=== PATIENT | male | born 1950 | race Caucasian/White ===

== ENCOUNTER 2022-01-27 12:36 | Inpatient (IN) ==
[2022-01-27] MEDS ORDERED: dilTIAZem HCl 5 MG/ML 5 ML VIAL IV STA (13:01)
[2022-01-27] MEDS ORDERED: STAT IV Infusion **Titration per Protocol STA (13:01)
--- NOTE | 2022-01-27 13:06 | Emergency Department Note ---
History of Present Illness General Chief complaint: Shortness of Breath/Dyspnea Stated complaint: DR SUSANNA SYD OVER Time Seen by Provider: 01/27/22 12:49 Source: patient Mode of arrival: ambulatory Limitations: no limitations History of Present Illness Provider complaint: Shortness of breath This is a 71-year-old male presents emergency department due to concern for shortness of breath. Patient states symptoms have been ongoing over several weeks. He states they are not constant. He states sometimes they are a ssociated with exertion although not consistently. Patient did not denies any prior similar episodes. Patient denies any history of asthma or COPD, he states he is a former smoker. Patient denies any history of heart problems although states he has previously had a cardiac evaluation several years ago. Patient states he takes losartan for high blood pressure, and started atorvastatin at the end of October. Patient is concerned his symptoms may be from the initiation of atorvastatin. Patient denies any other recent travel or illness. Denies fevers or chills. He denies any sense of chest pain or palpitations. Home Medications Medication Instructions Recorded Confirmed Type alprazolam 0.5 mg tablet 0.5 mg PO HS PRN Sleep 01/27/22 01/27/22 History atorvastatin 20 mg tablet 20 mg PO QAM 01/27/22 01/27/22 History losartan 50 mg tablet 50 mg PO QAM 01/27/22 01/27/22 History multivitamin (Multiple Vitamins 1 tab PO QAM 01/27/22 01/27/22 History tablet) Allergies Allergy/AdvReac Type Severity Reaction Status Date / Time lisinopril Allergy Unknown Cough Verified 01/27/22 15:44 Past Med/Surg History Medical History Hyperlipidemia Hypertension Social History Smoking Status: Former smoker Hx Alcohol Use: No Preferred Language: Upper Sorbian Communication Ability: Effective Dentist Required: No Beliefs That Will Affect Care: None Current Living Situation: Alone Feels Safe at Home: Yes Safety Concerns: Feels Safe At This Time Assistive Devices: None Review of Systems A total of 10 systems reviewed and were otherwise negative All systems reviewed & are unremarkable except as noted in HPI & below Physical Exam Vital Signs Vital Signs - 24 hr 01/27/22 12:42 01/27/22 12:56 01/27/22 12:57 Temperature 36.5 C Temperature Source Temporal Artery Scan Pulse Rate 137 H Pulse Rate [Apical] 134 H Pulse Rhythm [Apical] Regular Pulse Strength [Apical] Normal Respiratory Rate 18 18 Respiratory Effort / Characteristics Non-Labored Spontaneous Non-Labored Respiratory Depth Normal Normal Respiratory Pattern Regular Blood Pressure 122/77 Blood Pressure [Right Arm] 140/117 H Blood Pressure Mean 92 Blood Pressure Mean [Right Arm] 124 Blood Pressure Position Sitting Pulse Oximetry 96 96 97 Oxygen Delivery Method Room Air Room Air Room Air Oxygen Flow Rate 0 Sepsis Recent Fever Within 48 Hours No Sepsis New/Unexplained Change in Mental Status N/A Sepsis Action Taken by Nursing No Action Required 01/27/22 14:00 Temperature Temperature Source Pulse Rate Pulse Rate [Apical] 126 H Pulse Rhythm [Apical] Regular Pulse Strength [Apical] Normal Respiratory Rate 18 Respiratory Effort / Characteristics Non-Labored Respiratory Depth Normal Respiratory Pattern Blood Pressure Blood Pressure [Right Arm] 122/97 Blood Pressure Mean Blood Pressure Mean [Right Arm] 105 Blood Pressure Position Pulse Oximetry 95 Oxygen Delivery Method Room Air Oxygen Flow Rate Sepsis Recent Fever Within 48 Hours Sepsis New/Unexplained Change in Mental Status Sepsis Action Taken by Nursing GENERAL: alert, well appearing, well nourished, no distress, non-toxic EYE EXAM: normal conjunctiva, PERRL and EOM's grossly intact OROPHARYNX: no exudate, no erythema, lips, buccal mucosa, and tongue normal and mucous membranes are moist NECK: supple, no nuchal rigidity, no adenopathy, non-tender LUNGS: Clear to auscultation. Normal chest wall mechanics, no w/r/r HEART: no murmurs, S1 normal and S2 normal, patient found to be in A. fib in the 140s on telemetry ABDOMEN: abdomen soft, non-tender, normo-active bowel sounds, no masses, no rebound or guarding. BACK: Back is symmetrical on inspection and there is no deformity, no midline tenderness, no CVA tenderness. SKIN: no rashes and no bruising UPPER EXTREMITIES: upper extremities are grossly normal. FROM, nml pulses b/l. LOWER EXTREMITIES: Trace bilateral pitting edema. FROM, nml pulses b/l. NEURO EXAM: Normal sensorium, cranial nerves II-XII grossly intact, normal speech, no gross weakness of arms, no gross weakness of legs. Gross sensation intact. Course Course 1426: Patient improved, heart rate still variable but sitting much lower. Labs reassuring. [id number] 2 score calculated at 2 points. Administered Medications Diltiazem HCl 125 mg/ Dextrose 125 mls @ 15 mls/hr IV .[id number] DUTSY; Protocol Stop: 02/26/22 13:14 Last Titration: 01/27/22 17:38 Dose: 15 mg/hr, 15 mls/hr Documented By: MARCELLO Co-signed By: FRANSISCO Titration: 01/27/22 14:06 Dose: 10 mg/hr, 10 mls/hr Documented By: MOHAMUD Co-signed By: CHUY Admin: 01/27/22 13:16 Dose: 5 mg/hr, 5 mls/hr Documented By: MOHAMUD Co-signed By: CHUY Sodium Chloride (Nss 1000ml) 1,000 mls @ 125 mls/hr IV .Q8H DUSTY Stop: 02/26/22 14:44 Last Admin: 01/27/22 15:31 Dose: 125 mls/hr Documented By: MOHAMUD Heparin Sodium/Dextrose (Heparin Sodium/Dextrose) 25,000 units in 500 mls @ 30 mls/hr IV .[id number] [facility]; Protocol Stop: 02/26/22 15:59 Last Admin: 01/27/22 18:16 Dose: 1,500 units/hr, 30 mls/hr Documented By: MARCELLO Co-signed By: GIO Doxycycline Hyclate 100 mg/ (Dextrose) 110 mls @ 50 mls/hr IV Q12H [facility] Stop: 02/06/22 17:44 Last Admin: 01/27/22 18:30 Dose: 50 mls/hr Documented By: MARCELLO Discontinued Medications Diltiazem HCl (Diltiazem Hcl 5 Mg/Ml 5 Ml Vial) 20 mg IV NOW [facility] Stop: 01/27/22 13:02 Last Admin: 01/27/22 13:15 Dose: 20 mg Documented By: MOHAMUD Co-signed By: CHUY Diltiazem HCl (Diltiazem Hcl 5 Mg/Ml 5 Ml Vial) 20 mg IV Q30M [facility] Stop: 01/28/22 00:00 Last Admin: 01/27/22 18:08 Dose: Not Given Documented By: Admin: 01/27/22 18:00 Dose: Not Given Documented By: MARCELLO Magnesium Sulfate/Dextrose (Magnesium Sulfate / D5w) 1 gm in 100 mls @ 100 mls/hr IV NOW STA Stop: 01/27/22 15:08 Last Infusion: 01/27/22 15:28 Dose: 0 mls/hr Documented By: Admin: 01/27/22 14:25 Dose: 100 mls/hr Documented By: MOHAMUD Miscellaneous (Stat Iv Infusion Titration Per Protocol) 1 each N/A NOW STA Stop: 01/27/22 13:02 Last Admin: 01/27/22 13: Dose: 1 each Documented By: MOHAMUD Critical Care Time Critical Care Time: Yes Total Critical Care Time: 39 Critical care of 39 min performed to assess and manage high likelihood of life- threatening dyspnea and dysrhythmia involving labs and imaging performed with assessment to evaluate dyspnea and dysrhythmia diagnosis with frequent reassessment. This time includes bedside time, treatment discussions with patient/family/consultants, documentation time and excludes procedure time. Medical Decision Making Differential Diagnosis Differential diagnoses includes but is not limited to pneumonia, bronchitis, C OPD/Asthma exacerbation, pneumothorax, pulmonary embolism, congestive heart failure, acute coronary syndrome Medical Records Attestation: I reviewed the patient's medical records. Home Medications Current Medication List: was personally reviewed by me Laboratory Data Attestation: I reviewed the patient's lab results. Result diagrams: 01/27/22 12:57 01/27/22 12:57 Lab Results 01/27/22 01/27/22 01/27/22 Range/Units 12:57 12:57 12:57 WBC 5.76 (4.8-10.8) K/ul RBC 4.68 (4.63-6.08) M/uL Hgb 14.9 (14.0-18.0) g/dl Hct 44.9 (40.1-51.0) % MCV 95.9 (80.0-100.0) fL MCH 31.8 (25.0-34.0) pg MCHC 33.2 (32.0-36.0) g/dL RDW Std Deviation 45.2 (36.4-46.3) fL RDW Coeff of Vicki 12.6 (11.5-14.5) % Plt Count 338 (130-400) K/uL MPV 9.4 (9.4-12.4) fL Immature Gran % (Auto) 0.2 % Neut % (Auto) 61.0 % Lymph % (Auto) 30.4 % Howell % (Auto) 6.6 % Eos % (Auto) 0.9 % Baso % (Auto) 0.9 % Neut # (Auto) 3.52 (1.4-6.5) K/uL Lymph # (Auto) 1.75 (1.2-3.4) K/uL Howell # (Auto) 0.38 (0.24-0.82) K/uL Eos # (Auto) 0.05 (0-0.50) K/uL Baso # (Auto) 0.05 (0-0.2) K/uL Immature Gran # (Auto) 0.01 (0.00-0.02) K/uL PT 11.0 (9.0-12.0) Seconds INR 1.0 (0.9-1.1) Sodium (136-145) mmol/L Potassium (3.5-5.1) mmol/L Chloride (98-107) mmol/L Carbon Dioxide (21-32) mmol/L Anion Gap (3-11) BUN (6-23) mg/dl Creatinine (0.6-1.4) mg/dl Est Cr Clr Drug Dosing ml/min Est GFR ( Amer) ml/min Est GFR (Non-Af Amer) ml/min BUN/Creatinine Ratio (10-20) Glucose (70-99(Fasting)) mg/dl Calcium (8.5-10.1) mg/dl Magnesium (1.7-2.4) mg/dl Total Bilirubin (0.2-1.0) mg/dl AST (13-39) U/L ALT (7-52) U/L Alkaline Phosphatase (34-104) U/L Troponin I High Sens (0-20) pg/ml B-Natriuretic Peptide 305 H (0-100) pg/ml Total Protein (6.0-8.3) gm/dl Albumin (3.4-5.0) gm/dl Globulin (2.5-4.0) gm/dl Albumin/Globulin Ratio (0.9-2) Lipase (11-82) U/L TSH (0.300-4.500) uIu/ml Lyme Disease IgG Ab (Negative) Lyme Disease IgM Ab (Negative) SARS-CoV-2, RNA, NAAT (NEGATIVE) 01/27/22 01/27/22 01/27/22 Range/Units 12:57 12:57 12:57 WBC (4.8-10.8) K/ul RBC (4.63-6.08) M/uL Hgb (14.0-18.0) g/dl Hct (40.1-51.0) % MCV (80.0-100.0) fL MCH (25.0-34.0) pg MCHC (32.0-36.0) g/dL RDW Std Deviation (36.4-46.3) fL RDW Coeff of Vicki (11.5-14.5) % Plt Count (130-400) K/uL MPV (9.4-12.4) fL Immature Gran % (Auto) % Neut % (Auto) % Lymph % (Auto) % Howell % (Auto) % Eos % (Auto) % Baso % (Auto) % Neut # (Auto) (1.4-6.5) K/uL Lymph # (Auto) (1.2-3.4) K/uL Howell # (Auto) (0.24-0.82) K/uL Eos # (Auto) (0-0.50) K/uL Baso # (Auto) (0-0.2) K/uL Immature Gran # (Auto) (0.00-0.02) K/uL PT (9.0-12.0) Seconds INR (0.9-1.1) Sodium 142 (136-145) mmol/L Potassium 4.2 (3.5-5.1) mmol/L Chloride 105 (98-107) mmol/L Carbon Dioxide 27 (21-32) mmol/L Anion Gap 10 (3-11) BUN 30 H (6-23) mg/dl Creatinine 1.09 (0.6-1.4) mg/dl Est Cr Clr Drug Dosing 73.3 ml/min Est GFR ( Amer) 78.7 ml/min Est GFR (Non-Af Amer) 67.9 ml/min BUN/Creatinine Ratio 27.5 H (10-20) Glucose 112 H (70-99(Fasting)) mg/dl Calcium 9.4 (8.5-10.1) mg/dl Magnesium 1.8 (1.7-2.4) mg/dl Total Bilirubin 0.6 (0.2-1.0) mg/dl AST 72 H (13-39) U/L ALT 88 H (7-52) U/L Alkaline Phosphatase 60 (34-104) U/L Troponin I High Sens 9.6 (0-20) pg/ml B-Natriuretic Peptide (0-100) pg/ml Total Protein 7.2 (6.0-8.3) gm/dl Albumin 4.1 (3.4-5.0) gm/dl Globulin 3.1 (2.5-4.0) gm/dl Albumin/Globulin Ratio 1.3 (0.9-2) Lipase 26 (11-82) U/L TSH 1.473 (0.300-4.500) uIu/ml Lyme Disease IgG Ab Positive A (Negative) Lyme Disease IgM Ab Negative (Negative) SARS-CoV-2, RNA, NAAT (NEGATIVE) 01/27/22 Range/Units 13:17 WBC (4.8-10.8) K/ul RBC (4.63-6.08) M/uL Hgb (14.0-18.0) g/dl Hct (40.1-51.0) % MCV (80.0-100.0) fL MCH (25.0-34.0) pg MCHC (32.0-36.0) g/dL RDW Std Deviation (36.4-46.3) fL RDW Coeff of Vicki (11.5-14.5) % Plt Count (130-400) K/uL MPV (9.4-12.4) fL Immature Gran % (Auto) % Neut % (Auto) % Lymph % (Auto) % Howell % (Auto) % Eos % (Auto) % Baso % (Auto) % Neut # (Auto) (1.4-6.5) K/uL Lymph # (Auto) (1.2-3.4) K/uL Howell # (Auto) (0.24-0.82) K/uL Eos # (Auto) (0-0.50) K/uL Baso # (Auto) (0-0.2) K/uL Immature Gran # (Auto) (0.00-0.02) K/uL PT (9.0-12.0) Seconds INR (0.9-1.1) Sodium (136-145) mmol/L Potassium (3.5-5.1) mmol/L Chloride (98-107) mmol/L Carbon Dioxide (21-32) mmol/L Anion Gap (3-11) BUN (6-23) mg/dl Creatinine (0.6-1.4) mg/dl Est Cr Clr Drug Dosing ml/min Est GFR ( Amer) ml/min Est GFR (Non-Af Amer) ml/min BUN/Creatinine Ratio (10-20) Glucose (70-99(Fasting)) mg/dl Calcium (8.5-10.1) mg/dl Magnesium (1.7-2.4) mg/dl Total Bilirubin (0.2-1.0) mg/dl AST (13-39) U/L ALT (7-52) U/L Alkaline Phosphatase (34-104) U/L Troponin I High Sens (0-20) pg/ml B-Natriuretic Peptide (0-100) pg/ml Total Protein (6.0-8.3) gm/dl Albumin (3.4-5.0) gm/dl Globulin (2.5-4.0) gm/dl Albumin/Globulin Ratio (0.9-2) Lipase (11-82) U/L TSH (0.300-4.500) uIu/ml Lyme Disease IgG Ab (Negative) Lyme Disease IgM Ab (Negative) SARS-CoV-2, RNA, NAAT NEGATIVE (NEGATIVE) Imaging Data Radiologist's Impression: Chest X-Ray 01/27/22 13:01 SINGLE VIEW CHEST CLINICAL HISTORY: Dyspnea. FINDINGS: An AP, portable, upright chest radiograph is obtained. No prior studies are available for comparison at the time of dictation. The heart is enlarged. The pulmonary vasculature is noncongested. Nonspecific interstitial thickening is likely chronic. There are trace pleural effusions with dependent consolidation. No pneumothorax is seen. The skeletal structures are osteopenic. The bony thorax is grossly intact. IMPRESSION: 1. Cardiomegaly without radiographic evidence of congestive failure. 2. Trace pleural effusions with dependent consolidation. This likely represents atelectasis and clinical correlation will be required. ACT 112: Negative or not required by law. Electronically signed by: Uche Lam M.D. 01/27/2022 1:39 PM ECG Data Attestation: I personally reviewed and interpreted this ECG as follows: Indication: + SOB/dyspnea Rate (beats per minute): 143 Rhythm: + atrial fibrillation ECG Intervals/blocks: + Normal QRS and + Normal QT ECG [place]: + Left axis deviation ECG ST segments: + Nonspecific ST abnormalities MDM Narrative An order was placed for continuous cardiac monitoring. The monitor shows a rate of _113__ with _atrial fibrillation_ rhythm. This is a 71-year-old male who presents with nearly a months worth of intermittent shortness of breath. No prior cardiac history. No other underlying pulmonary issues per his report. Patient afebrile and hemodynamically stable. He was found to be in rapid A. fib although he had no symptoms at bedside during my exam. Labs are drawn and sent, chest x-ray and EKG performed. Patient started on Cardizem bolus and drip with improvement in the overall range and rate of his atrial fibrillation. Patient was given additional magnesium. Patient with reassuring labs although ultimately noted to have an IgG positive Lyme test. Patient denies any prior known diagnosis of Lyme although does spend a lot of time outdoors in the summer and has had prior tick bites. It is unclear if this could be contributing to his symptoms given his advanced age and use of alcohol and coffee frequently. Patient started on gentle IV fluid rehydration as a precaution. I did review prior cardiac testing performed several years ago by Dr. Ponce. Case discussed with hospitalist for additional evaluation and management. Anticoagulation deferred to them. [id number] 2 score of 2. Impression & Plan Dyspnea, Atrial fibrillation with rapid ventricular response Discharge Plan Visit Data Chief Complaint: Shortness of Breath/Dyspnea Stated Complaint: SOB, DR REF OVER ED Provider: Akanksha Irwin Discharge Problem: Dyspnea, Atrial fibrillation with rapid ventricular response Patient Disposition: Admitted As Inpatient Discharge Instructions Interventions: ED Discharge Assessment Last Done: 01/27/22 16:32
[2022-01-27] MEDS: dilTIAZem HCL 125 MG in DEXTROSE 5% 100 ML IV SCH ×2 (13:16→22:14)
[2022-01-27 13:18] LABS: Basophils # (auto) 0.05 K/uL (0-0.2); Basophils % (auto) 0.9 %; Eosinophils # (auto) 0.05 K/uL (0-0.50); Eosinophils % (auto) 0.9 %; Hematocrit (blood only) 44.9 % (40.1-51.0); Hemoglobin 14.9 g/dl (14.0-18.0); Immature Granulocytes # (auto) 0.01 K/uL (0.00-0.02); Immature Granulocytes % (auto) 0.2 %; Lymphocytes # (auto) 1.75 K/uL (1.2-3.4); Lymphocytes % (auto) 30.4 %; Mean Corpuscular Hemoglobin 31.8 pg (25.0-34.0); Mean Corpuscular Hgb Conc 33.2 g/dL (32.0-36.0); Mean Corpuscular Volume 95.9 fL (80.0-100.0); Mean Platelet Volume 9.4 fL (9.4-12.4); Monocytes # (auto) 0.38 K/uL (0.24-0.82); Monocytes % (auto) 6.6 %; Neutrophils # (auto) 3.52 K/uL (1.4-6.5); Platelet Count 338 K/uL (130-400); RDW Coefficient of Variation 12.6 % (11.5-14.5); RDW Standard Deviation 45.2 fL (36.4-46.3); Red Blood Count 4.68 M/uL (4.63-6.08); White Blood Count 5.76 K/ul (4.8-10.8)
--- NOTE | 2022-01-27 13:40 | XRay Report ---
SINGLE VIEW CHEST CLINICAL HISTORY: Dyspnea. FINDINGS: An AP, portable, upright chest radiograph is obtained. No prior studies are available for c omparison at the time of dictation. The heart is enlarged. The pulmonary vasculature is noncongested. Nonspecific interstitial thickening is likely chronic. There are trace pleural effusions with depend ent consolidation. No pneumothorax is seen. The skeletal structures are osteopenic. The bony thorax i s grossly intact. IMPRESSION: 1. Cardiomegaly without radiographic evidence of congestive failure. 2. Trace pleural effusions with dependent consolidation. This likely represents atelectasis and clini albert correlation will be required. ACT 112: Negative or not required by law. Electronically signed by: Uche Lam M.D. 01/27/2022 1:39 PM
[2022-01-27 13:51] LABS: Troponin I High Sensitivity 9.6 pg/ml (0-20)
[2022-01-27 13:53] LABS: Albumin Globulin Ratio 1.3 (0.9-2); Albumin Level 4.1 gm/dl (3.4-5.0); BUN Creatinine Ratio 27.5 (10-20); Bilirubin,Total 0.6 mg/dl (0.2-1.0); Calcium 9.4 mg/dl (8.5-10.1); Creatinine Clr Calc Pharmacy 73.3 ml/min; Est GFR (African American) 78.7 ml/min; Est GFR (Non-African American) 67.9 ml/min; Globulin 3.1 gm/dl (2.5-4.0); Magnesium 1.8 mg/dl (1.7-2.4); Potassium 4.2 mmol/L (3.5-5.1); Total Protein 7.2 gm/dl (6.0-8.3)
[2022-01-27] MEDS ORDERED: MAGNESIUM SULFATE / D5W 1 GM/100 ML BAG IV STA (14:09)
[2022-01-27 14:55] LABS: Lyme Ab IgM w/WB Rflx Negative (Negative)
[2022-01-27 14:56] LABS: Lyme Ab IgG w/WB Rflx Positive (Negative)
[2022-01-27] MEDS: SODIUM CHLORIDE 0.9% 1000ML 1,000 ML IV SCH ×2 (15:31→23:35)
[2022-01-27] MEDS ORDERED: MAGNESIUM HYDROXIDE SUSP 30 ML UDC PO PRN (15:41)
[2022-01-27] MEDS ORDERED: NITROGLYCERIN SL 0.4 MG/TAB TAB SL PRN (15:41)
[2022-01-27] MEDS ORDERED: ACETAMINOPHEN 325 MG TAB PO PRN (15:41)
[2022-01-27] MEDS ORDERED: POLYETHYLENE (MIRALAX) 17 GM PACK PO PRN (15:41)
[2022-01-27] MEDS ORDERED: ALUMINUM/MAGNESIUM SUSP 30 ML UDC PO PRN (15:41)
[2022-01-27] MEDS ORDERED: Heparin IV Adult Wt-Based Standard *NO* Bolus Protocol IV STA (15:48)
--- NOTE | 2022-01-27 16:04 | History & Physical Report ---
Date of Service January 27, 2022 Assessment & Plan (1) Atrial fibrillation with rapid ventricular response: Plan #. A. fib with RVR: Patient was sent from PCP office with A. fib with RVR with heart rate in 130s Patient was having shortness of breath especially with exertion and also erratically since couple of weeks to a month prior to arrival EKG at admission with A. fib with RVR with heart rate in 143. Admitting electrolytes with magnesium of 1.8, given a gram of magnesium in the ED. Admitting troponin negative. Trend troponin, echo, cardiology consult, heparin drip, patient started on diltiazem drip in the ED which we will continue. BNP, TSH, telemetry monitoring. Orthostatic vitals. Monitor and replete electrolytes. Maintain potassium greater than 4 and magnesium greater than 2.0 Pt advised to minimize alcohol use to zero, and minimize caffeine use. #. Lyme positive: Patient reports history of tick bite in the past where he had pulled ticks from his body, last one couple of years ago per him. Lyme IgG positive in the ED, confirmatory test pending. We will put him on doxycycline until results finalized. #. Alcohol use: reports drinking 1-2 beers a day, reports last drink a week ago, monitor for withdrawal, though unlikely if last drink was a week ago. #. Other chronic medical conditions: HTN, HLD --> resume home meds as able. #. DVT prophylaxis: On heparin drip #. Full code, if situation arises patient would like his daughter Yessica make decisions. History of Present Illness Chief Complaint: Shortness of breath New A. fib with RVR Primary Care Provider: Rolan Estrada MD 71-year-old male with PMH of HLD, HTN, varicose veins of lower extremities with complication, ectatic aorta, anxiety, elevated PSA was sent from the PCP office due to A. fib RVR with heart rate in 130s. Per patient, he has been having shortness of breath mostly with exertion but erratically as well since couple of weeks to a month prior to arrival, no associated chest pain or feeling of heart racing, denies headache/recent flulike symptoms/belly pain/acute changes in his bowel or bladder habit. Patient complains of dizziness on and off especially when getting off of the chair which gets better within couple of seconds. Patient reports drinking 4-5 coffee a day, last drink of coffee 1 week ago per patient. Patient drinks more beer during the summer, 4-5 beer over the weekend on top of 1-2 beer on a regular basis. Patient camps every summer and remembers pulling out ticks couple of times from his body, last one couple of years ago. Today patient went to PCP office for shortness of breath where EKG was done and was found in A. fib with RVR with heart rate of 130 and sent to the ED. Patient denies any headache or belly pain or acute swelling in his lower extremities. Patient reports he has chronic RLE swelling with varicose veins. Medications were reviewed with the patient. Patient's daughter Taylre Gautam and Marline Seo were present at the bedside. No personal history of blood clot or family history of blood clot. Patient's mother had colon cancer and has pacemaker. Patient's father during bypass surgery per patient. Patient worked as warehouse administrative assistant, currently retired. Patient quit smoking 15 to 18 years ago, reports smoking for around 45 years with an average of 1 packs a day. Patient has been drinking alcohol for 40 to 45 years, 1-2 beers a day, more during the . Patient denies any history of use of recreational drugs. Full code. Would like his daughters Tayler and Marline make decisions if situation arises. Allergies Allergy/AdvReac Type Severity Reaction Status Date / Time lisinopril Allergy Unknown Cough Verified 01/27/22 15:44 Home Medications Medication Instructions Recorded Confirmed Type alprazolam 0.5 mg tablet 0.5 mg PO HS PRN Sleep 01/27/22 01/27/22 History atorvastatin 20 mg tablet 20 mg PO QAM 01/27/22 01/27/22 History losartan 50 mg tablet 50 mg PO QAM 01/27/22 01/27/22 History multivitamin (Multiple Vitamins 1 tab PO QAM 01/27/22 01/27/22 History tablet) Past Med/Surg History Medical History Hyperlipidemia Hypertension Social History Smoking Status: Former smoker Feels Safe at Home: Yes Review of Systems Review of Systems: Negative otherwise mentioned in HPI. Physical Exam Physical Exam: GENERAL: Alert and oriented x3. NAD, on RA. HEENT: No pallor, no icterus. Pupils equal, round and reactive to light. Oral mucosa moist. NECK: No JVD, no neck masses. HEART: S1 and S2 heard. Irregular in 120s. No murmur, no gallop. RESPIRATORY SYSTEM: Normal AP diameter. No accessory muscle use. No wheezing, no crackles. ABDOMEN: Soft, bowel sounds present, nontender, no distention. CENTRAL NERVOUS SYSTEM: No facial droop. Speech is clear. Obeys simple commands. Moves extremities. EXTREMITIES: RLE varicosity w/ 1-2 + pitting edema, LLE w/ trace edema, no erythema noted. Results & Data Results & Data ([facility] [place]) Vital Signs (Past 12 Hours) Vital Signs Temp Pulse Pulse Resp BP BP Pulse Ox 01/27/22 14:00 126 H 18 122/97 95 01/27/22 12:57 134 H 18 140/117 H 97 01/27/22 12:56 96 01/27/22 12:42 36.5 C 137 H 18 122/77 96 O2 Del Method O2 Flow Rate 01/27/22 14:00 Room Air 01/27/22 12:57 Room Air 01/27/22 12:56 Room Air 0 01/27/22 12:42 Room Air
[2022-01-27] MEDS: dilTIAZem HCl 5 MG/ML 5 ML VIAL IV SCH ×2 (18:00→18:08)
[2022-01-27] MEDS: HEPARIN SODIUM/DEXTROSE 25,000 UNITS/500 ML BAG IV SCH (18:16)
[2022-01-27] MEDS: DOXYCYCLINE HYCLATE 100 MG in DEXTROSE 5% 100 ML IV SCH (18:30)
[2022-01-28 02:15] LABS: Partial Thromboplastin Ratio 4.7
[2022-01-28 02:18] LABS: Partial Thromboplastin Time 129.3 Seconds (21.0-31.0)
[2022-01-28] MEDS: DOXYCYCLINE HYCLATE 100 MG in DEXTROSE 5% 100 ML IV SCH ×2 (05:45→17:13)
[2022-01-28] MEDS: dilTIAZem HCL 125 MG in DEXTROSE 5% 100 ML IV SCH (06:03)
[2022-01-28 07:21] LABS: Hematocrit (blood only) 36.2 % (40.1-51.0); Hemoglobin 12.4 g/dl (14.0-18.0); Mean Corpuscular Hgb Conc 34.3 g/dL (32.0-36.0); Mean Corpuscular Volume 93.3 fL (80.0-100.0); Mean Platelet Volume 9.8 fL (9.4-12.4); Platelet Count 269 K/uL (130-400); RDW Coefficient of Variation 12.7 % (11.5-14.5); RDW Standard Deviation 43.3 fL (36.4-46.3); Red Blood Count 3.88 M/uL (4.63-6.08); White Blood Count 5.06 K/ul (4.8-10.8)
[2022-01-28 07:28] LABS: BUN Creatinine Ratio 27.1 (10-20); Est GFR (African American) 101.6 ml/min; Est GFR (Non-African American) 87.7 ml/min; Magnesium 1.7 mg/dl (1.7-2.4); Phosphorus 3.6 mg/dl (2.5-4.9); Potassium 3.8 mmol/L (3.5-5.1)
[2022-01-28] MEDS ORDERED: POTASSIUM CHLORIDE CRTAB 20 MEQ TABCR PO STA (07:29)
[2022-01-28] MEDS: SODIUM CHLORIDE 0.9% 1000ML 1,000 ML IV SCH (08:03)
[2022-01-28] MEDS: ATORVASTATIN 20 MG TAB PO SCH (08:04)
[2022-01-28] MEDS: LOSARTAN POTASSIUM 50 MG TAB PO SCH (08:04)
[2022-01-28] MEDS: MAGNESIUM SULFATE / D5W 1 GM/100 ML BAG IV SCH ×2 (08:23→10:06)
--- NOTE | 2022-01-28 10:36 | Cardiology Consultation ---
Date of Consultation January 28, 2022 Assessment & Plan (1) Atrial fibrillation with rapid ventricular response: (2) Dyspnea: (3) Hyperlipidemia: (4) Hypertension: Plan The patient is clinically stable. The echocardiogram is still pending and I will review it when it is available. Currently I would keep him on IV heparin but anticipate switching him over to Eliquis prior to discharge. I started him on metoprolol succinate and the diltiazem should be weaned off. Likely will proceed with rhythm control with a PRESTON cardioversion prior to discharge. History of Present Illness Attending Physician: Stephie Sousa MD History of Present Illness This is a 71-year-old male patient with no significant cardiac history. Several years ago he saw Dr. Ponce for what he describes irregular heartbeat. He underwent an exercise stress echocardiogram that was unremarkable. He was then lost to follow-up. Starting about 2 months ago he has noticed progressive shortness of breath and dyspnea with activity. No heart palpitations or tachycardia. No activity related chest pain. The patient was seen by his PCP for the above symptoms noted to be in atrial fibrillation with RVR. He was then sent to the hospital where he has been admitted. He is currently on a diltiazem drip for rate control and IV heparin. Echocardiogram was completed but not revi ewed yet. Cardiac markers are negative. Allergies Allergy/AdvReac Type Severity Reaction Status Date / Time lisinopril Allergy Unknown Cough Verified 01/27/22 15:44 Home Medications Medication Instructions Recorded Confirmed Type alprazolam 0.5 mg tablet 0.5 mg PO HS PRN Sleep 01/27/22 01/27/22 History atorvastatin 20 mg tablet 20 mg PO QAM 01/27/22 01/27/22 History losartan 50 mg tablet 50 mg PO QAM 01/27/22 01/27/22 History multivitamin (Multiple Vitamins 1 tab PO QAM 01/27/22 01/27/22 History tablet) apixaban 5 mg tablet (Eliquis) 5 mg PO BID #60 tabs 01/28/22 Rx Patient History Medical History Hyperlipidemia Hypertension Social History Smoking Status: Former smoker Hx Alcohol Use: No Preferred Language: Estonian Communication Ability: Effective Infrastructure Consultant Required: No Beliefs That Will Affect Care: None Current Living Situation: Alone Feels Safe at Home: Yes Safety Concerns: Feels Safe At This Time Assistive Devices: None Review of Systems Review of Systems: Review of Systems: See HPI for pertinent positives. All other 10 point review of systems are negative. Physical Exam Physical Exam: General: no acute distress and stated age Head: normocephalic, no masses, lesions, tenderness or abnormalities Eyes: conjunctiva are pink and non-injected, sclera clear Neck: supple, no adenopathy, no bruits, normal jugular venous pulse, no hepatojugular reflux Chest: normal shape and normal respiratory effort Lungs: clear to auscultation and percussion Cardiac Exam: - irregular rate & rhythm, no murmurs gallops or rubs - normal S1, normal S2 Pulses: 2(+) throughout Abdomen: abdomen soft, non-tender, no abnormal masses and no hepatosplenomegaly Musculoskeletal: no gait disturbance, no joint inflammation, no deforming arthritis Extremities: no edema and no cyanosis Neuro: grossly normal exam Results & Data ([facility]) Vital Signs (Past 12 Hours) Vital Signs Temp Pulse Resp BP Pulse Ox O2 Del Method 01/28/22 07:52 36.8 C 79 18 102/70 100 Room Air 01/28/22 03:50 36.4 C L 72 18 109/76 96 Room Air 01/27/22 23:56 36.8 C 74 18 113/60 96 Room Air Laboratory Results Laboratory Results - last 24 hr 01/27/22 01/27/22 01/27/22 12:57 12:57 12:57 WBC 5.76 RBC 4.68 Hgb 14.9 Hct 44.9 MCV 95.9 MCH 31.8 MCHC 33.2 RDW Std Deviation 45.2 RDW Coeff of Vicki 12.6 Plt Count 338 MPV 9.4 Immature Gran % (Auto) 0.2 Neut % (Auto) 61.0 Lymph % (Auto) 30.4 [place] % (Auto) 6.6 Eos % (Auto) 0.9 Baso % (Auto) 0.9 Neut # (Auto) 3.52 Lymph # (Auto) 1.75 [place] # (Auto) 0.38 Eos # (Auto) 0.05 Baso # (Auto) 0.05 Immature Gran # (Auto) 0.01 PT 11.0 INR 1.0 APTT PTT Ratio Sodium Potassium Chloride Carbon Dioxide Anion Gap BUN Creatinine Est Cr Clr Drug Dosing Est GFR ( Amer) Est GFR (Non-Af Amer) BUN/Creatinine Ratio Glucose Calcium Phosphorus Magnesium Total Bilirubin AST ALT Alkaline Phosphatase Troponin I High Sens B-Natriuretic Peptide 305 H Total Protein Albumin Globulin Albumin/Globulin Ratio Lipase TSH Lyme Disease IgG Ab Lyme IgG (Western Blot) Lyme IgG 18 kDa Band Lyme IgG 23 kDa Band Lyme IgG 28 kDa Band Lyme IgG 30 kDa Band Lyme IgG 39 kDa Band Lyme IgG 41 kDa Band Lyme IgG 45 kDa Band Lyme IgG 58 kDa Band Lyme IgG 66 kDa Band Lyme IgG 93 kDa Band Lyme IgM Ab (WB) Lyme Disease IgM Ab Lyme IgM 23 kDa Band Lyme IgM 39 kDa Band Lyme IgM 41 kDa Band SARS-CoV-2, RNA, NAAT 01/27/22 01/27/22 01/27/22 12:57 12:57 12:57 WBC RBC Hgb Hct MCV MCH MCHC RDW Std Deviation RDW Coeff of Vicki Plt Count MPV Immature Gran % (Auto) Neut % (Auto) Lymph % (Auto) [place] % (Auto) Eos % (Auto) Baso % (Auto) Neut # (Auto) Lymph # (Auto) [place] # (Auto) Eos # (Auto) Baso # (Auto) Immature Gran # (Auto) PT INR APTT PTT Ratio Sodium 142 Potassium 4.2 Chloride 105 Carbon Dioxide 27 Anion Gap 10 BUN 30 H Creatinine 1.09 Est Cr Clr Drug Dosing 73.3 Est GFR ( Amer) 78.7 Est GFR (Non-Af Amer) 67.9 BUN/Creatinine Ratio 27.5 H Glucose 112 H Calcium 9.4 Phosphorus Magnesium 1.8 Total Bilirubin 0.6 AST 72 H ALT 88 H Alkaline Phosphatase 60 Troponin I High Sens 9.6 B-Natriuretic Peptide Total Protein 7.2 Albumin 4.1 Globulin 3.1 Albumin/Globulin Ratio 1.3 Lipase 26 TSH 1.473 Lyme Disease IgG Ab Positive A Lyme IgG (Western Blot) Lyme IgG 18 kDa Band Lyme IgG 23 kDa Band Lyme IgG 28 kDa Band Lyme IgG 30 kDa Band Lyme IgG 39 kDa Band Lyme IgG 41 kDa Band Lyme IgG 45 kDa Band Lyme IgG 58 kDa Band Lyme IgG 66 kDa Band Lyme IgG 93 kDa Band Lyme IgM Ab (WB) Lyme Disease IgM Ab Negative Lyme IgM 23 kDa Band Lyme IgM 39 kDa Band Lyme IgM 41 kDa Band SARS-CoV-2, RNA, NAAT 01/27/22 01/27/22 01/27/22 12:57 13:17 18:54 WBC RBC Hgb Hct MCV MCH MCHC RDW Std Deviation RDW Coeff of Vicki Plt Count MPV Immature Gran % (Auto) Neut % (Auto) Lymph % (Auto) [place] % (Auto) Eos % (Auto) Baso % (Auto) Neut # (Auto) Lymph # (Auto) [place] # (Auto) Eos # (Auto) Baso # (Auto) Immature Gran # (Auto) PT INR APTT PTT Ratio Sodium Potassium Chloride Carbon Dioxide Anion Gap BUN Creatinine Est Cr Clr Drug Dosing Est GFR ( Amer) Est GFR (Non-Af Amer) BUN/Creatinine Ratio Glucose Calcium Phosphorus Magnesium Total Bilirubin AST ALT Alkaline Phosphatase Troponin I High Sens 10.6 B-Natriuretic Peptide Total Protein Albumin Globulin Albumin/Globulin Ratio Lipase TSH Lyme Disease IgG Ab Lyme IgG (Western Blot) Pending Lyme IgG 18 kDa Band Pending Lyme IgG 23 kDa Band Pending Lyme IgG 28 kDa Band Pending Lyme IgG 30 kDa Band Pending Lyme IgG 39 kDa Band Pending Lyme IgG 41 kDa Band Pending Lyme IgG 45 kDa Band Pending Lyme IgG 58 kDa Band Pending Lyme IgG 66 kDa Band Pending Lyme IgG 93 kDa Band Pending Lyme IgM Ab (WB) Pending Lyme Disease IgM Ab Lyme IgM 23 kDa Band Pending Lyme IgM 39 kDa Band Pending Lyme IgM 41 kDa Band Pending SARS-CoV-2, RNA, NAAT NEGATIVE 01/28/22 01/28/22 01/28/22 00:25 00:25 01:35 WBC RBC Hgb Hct MCV MCH MCHC RDW Std Deviation RDW Coeff of Vicki Plt Count MPV Immature Gran % (Auto) Neut % (Auto) Lymph % (Auto) [place] % (Auto) Eos % (Auto) Baso % (Auto) Neut # (Auto) Lymph # (Auto) [place] # (Auto) Eos # (Auto) Baso # (Auto) Immature Gran # (Auto) PT INR APTT Cancelled 129.3 H* PTT Ratio Cancelled 4.7 Sodium Potassium Chloride Carbon Dioxide Anion Gap BUN Creatinine Est Cr Clr Drug Dosing Est GFR ( Amer) Est GFR (Non-Af Amer) BUN/Creatinine Ratio Glucose Calcium Phosphorus Magnesium Total Bilirubin AST ALT Alkaline Phosphatase Troponin I High Sens 11.7 B-Natriuretic Peptide Total Protein Albumin Globulin Albumin/Globulin Ratio Lipase TSH Lyme Disease IgG Ab Lyme IgG (Western Blot) Lyme IgG 18 kDa Band Lyme IgG 23 kDa Band Lyme IgG 28 kDa Band Lyme IgG 30 kDa Band Lyme IgG 39 kDa Band Lyme IgG 41 kDa Band Lyme IgG 45 kDa Band Lyme IgG 58 kDa Band Lyme IgG 66 kDa Band Lyme IgG 93 kDa Band Lyme IgM Ab (WB) Lyme Disease IgM Ab Lyme IgM 23 kDa Band Lyme IgM 39 kDa Band Lyme IgM 41 kDa Band SARS-CoV-2, RNA, NAAT 01/28/22 01/28/22 01/28/22 06:38 06:38 10:09 WBC 5.06 RBC 3.88 L Hgb 12.4 L Hct 36.2 L MCV 93.3 MCH 32.0 MCHC 34.3 RDW Std Deviation 43.3 RDW Coeff of Vicki 12.7 Plt Count 269 MPV 9.8 Immature Gran % (Auto) Neut % (Auto) Lymph % (Auto) [place] % (Auto) Eos % (Auto) Baso % (Auto) Neut # (Auto) Lymph # (Auto) [place] # (Auto) Eos # (Auto) Baso # (Auto) Immature Gran # (Auto) PT INR APTT Pending PTT Ratio Pending Sodium 139 Potassium 3.8 Chloride 108 H Carbon Dioxide 26 Anion Gap 5 BUN 23 Creatinine 0.85 Est Cr Clr Drug Dosing 94.0 Est GFR ( Amer) 101.6 Est GFR (Non-Af Amer) 87.7 BUN/Creatinine Ratio 27.1 H Glucose 100 H Calcium 8.0 L Phosphorus 3.6 Magnesium 1.7 Total Bilirubin AST ALT Alkaline Phosphatase Troponin I High Sens B-Natriuretic Peptide Total Protein Albumin Globulin Albumin/Globulin Ratio Lipase TSH Lyme Disease IgG Ab Lyme IgG (Western Blot) Lyme IgG 18 kDa Band Lyme IgG 23 kDa Band Lyme IgG 28 kDa Band Lyme IgG 30 kDa Band Lyme IgG 39 kDa Band Lyme IgG 41 kDa Band Lyme IgG 45 kDa Band Lyme IgG 58 kDa Band Lyme IgG 66 kDa Band Lyme IgG 93 kDa Band Lyme IgM Ab (WB) Lyme Disease IgM Ab Lyme IgM 23 kDa Band Lyme IgM 39 kDa Band Lyme IgM 41 kDa Band SARS-CoV-2, RNA, NAAT Medications Administered Current Inpatient Medications Acetaminophen (Acetaminophen 325 Mg Tab) 650 mg PO Q4H PRN PRN Reason: Pain or Fever Stop: 02/26/22 15:40 Al Hydrox/Mg Hydrox/Simethicone (Aluminum/Magnesium Susp 30 Ml Udc) 15 ml PO Q4H PRN PRN Reason: Dyspepsia Stop: 02/26/22 15:40 Atorvastatin Calcium (Atorvastatin 20 Mg Tab) 20 mg PO [facility] Stop: 02/27/22 08:59 Last Admin: 01/28/22 08:04 Dose: 20 mg Diltiazem HCl 125 mg/ Dextrose 125 mls @ 15 mls/hr IV .[id number] [facility]; Protocol Stop: 02/26/22 13:14 Last Admin: 01/28/22 06:03 Dose: 15 mg/hr, 15 mls/hr Heparin Sodium/Dextrose (Heparin Sodium/Dextrose) 25,000 units in 500 mls @ 23 mls/hr IV .[id number] [facility]; Protocol Stop: 02/26/22 15:59 Last Titration: 01/28/22 04:19 Dose: 1,150 units/hr, 23 mls/hr Doxycycline Hyclate 100 mg/ (Dextrose) 110 mls @ 50 mls/hr IV Q12H [facility] Stop: 02/06/22 17:44 Last Infusion: 01/28/22 08:03 Dose: Infused Magnesium Sulfate/Dextrose (Magnesium Sulfate / D5w) 1 gm in 100 mls @ 50 mls/hr IV Q2H [facility] Stop: 01/28/22 11:29 Last Admin: 01/28/22 10:06 Dose: 50 mls/hr Losartan Potassium (Losartan Potassium 50 Mg Tab) 50 mg PO [facility] Stop: 02/27/22 08:59 Last Admin: 01/28/22 08:04 Dose: 50 mg Magnesium Hydroxide (Magnesium Hydroxide Susp 30 Ml Udc) 30 ml PO Q12H PRN PRN Reason: Constipation Stop: 02/26/22 15:40 Metoprolol Succinate (Metoprolol Succ 25mg Ext Rel Tab) 25 mg PO [facility] Stop: 02/27/22 10:29 Nitroglycerin (Nitroglycerin Sl 0.4 Mg/Tab Tab) 0.4 mg SL UD PRN PRN Reason: Chest Pain Stop: 02/26/22 15:40 Polyethylene Glycol (Polyethylene (Miralax) 17 Gm Pack) 17 gm PO DAILY PRN PRN Reason: Constipation Stop: 02/26/22 15:40
[2022-01-28 11:04] LABS: Partial Thromboplastin Ratio 2.1
[2022-01-28 11:13] LABS: Partial Thromboplastin Time 56.7 Seconds (21.0-31.0)
[2022-01-28] MEDS: METOPROLOL SUCC 25MG EXT REL TAB PO SCH (11:24)
[2022-01-28] MEDS: HEPARIN SODIUM/DEXTROSE 25,000 UNITS/500 ML BAG IV SCH (12:39)
--- NOTE | 2022-01-28 14:57 | Hospitalist Progress Note ---
Date of Service January 28, 2022 Assessment & Plan (1) Atrial fibrillation with rapid ventricular response: Plan #. A. fib with RVR: Patient was sent from PCP office with [facility]. tanvir with RVR with heart rate in 130s Patient was having shortness of breath especially with exertion and also erratically since couple of weeks to a month prior to arrival EKG at admission with [facility]. tanvir with RVR with heart rate in 143. Admitting electrolytes with magnesium of 1.8, given a gram of magnesium in the ED. Admitting troponin negative. Troponin trends negative. BNP elevated at presentation. Status post Cardizem drip started at admission, transition to p.o. metoprolol Follow echo, continue with heparin drip, patient wants to go with Eliquis, Eliquis sent to pharmacy for cost evaluation. Cardiology following, appreciate recommendation. Likely plan to proceed with rhythm control with a PRESTON cardioversion prior to discharge. Monitor and replete electrolytes. Maintain potassium greater than 4 and magnesium greater than 2.0 Pt advised to minimize alcohol use to zero, and minimize caffeine use. #. Lyme positive: Patient reports history of tick bite in the past where he had pulled ticks from his body, last one couple of years ago per him. Lyme IgG positive in the ED, confirmatory test pending. We will put him on doxycycline until results finalized. #. Alcohol use: reports drinking 1-2 beers a day, reports last drink a week ago, monitor for withdrawal, though unlikely if last drink was a week ago. #. Other chronic medical conditions: HTN, HLD --> resume home meds as able. #. DVT prophylaxis: On heparin drip, plan to transition to eliquis if cost permits. #. Full code, if situation arises patient would like his daughter Yessica make decisions. Admission and Anticipated Discharge Date Admission Date: January 27, 2022 Subjective Patient seen and examined at bedside as a follow-up of [facility]. tanvir with RVR. Patient was lying in bed, on room air, NAD, reports no new acute event overnight, reports occasional feeling of heart racing, denies any headache/dizziness/chest pain/belly pain/other review of symptoms. Patient reports eating okay. Physical Exam Physical Exam: GENERAL: Alert and oriented x3. NAD, on RA. HEENT: No pallor, no icterus. Pupils equal, round and reactive to light. Oral mucosa moist. NECK: No JVD, no neck masses. HEART: S1 and S2 heard. Irregular in 90s. No murmur, no gallop. RESPIRATORY SYSTEM: Normal AP diameter. No accessory muscle use. No wheezing, no crackles. ABDOMEN: Soft, bowel sounds present, nontender, no distention. CENTRAL NERVOUS SYSTEM: No facial droop. Speech is clear. Obeys simple commands. Moves extremities. EXTREMITIES: RLE varicosity w/ 1-2 + pitting edema, LLE w/ trace/1+ edema, no erythema noted. Results & Data Results & Data ([facility]) Vital Signs (Past 12 Hours) Vital Signs Temp Pulse Pulse Resp BP Pulse Ox O2 Del Method 01/28/22 11:57 37.0 C 56 L 18 102/62 94 Room Air 01/28/22 06:12 77 01/28/22 07:52 36.8 C 79 18 102/70 100 Room Air 01/28/22 03:50 36.4 C L 72 18 109/76 96 Room Air
[2022-01-28] MEDS: METOPROLOL TARTRATE 1 MG/ML VIAL IV PRN (17:14)
--- NOTE | 2022-01-28 22:24 | Electrocardiogram Report ---
Test Reason : Blood Pressure : / mmHG Vent. Rate : 143 BPM Atrial Rate : 174 BPM P-R Int : 000 ms QRS Dur : 088 ms QT Int : 314 ms P-R-T Axes : 000 -36 017 degrees QTc Int : 484 ms Atrial fibrillation with rapid ventricular response Left axis deviation Low voltage QRS Cannot rule out Anterior infarct , age undetermined Abnormal ECG No previous ECGs available Confirmed by Silvino Jean-Baptiste ([id number]) on 01/28/2022 10:24:16 PM Referred By: Confirmed By:Silvino Jean-Baptiste
--- NOTE | 2022-01-29 05:56 | Electrocardiogram Report ---
Test Reason : Blood Pressure : / mmHG Vent. Rate : 091 BPM Atrial Rate : 055 BPM P-R Int : 000 ms QRS Dur : 094 ms QT Int : 366 ms P-R-T Axes : 000 -34 027 degrees QTc Int : 450 ms Atrial fibrillation with premature ventricular or aberrantly conducted complexes Left axis deviation Low voltage QRS Inferior infarct , age undetermined Cannot rule out Anterior infarct (cited on or before 27-JAN-2022) Abnormal ECG When compared with ECG of 27-JAN-2022 12:53, (unconfirmed) Vent. rate has decreased BY 52 BPM Confirmed by Silvino Jean-Baptiste ([id number]) on 01/29/2022 5:56:02 AM Referred By: Rolan Estrada Confirmed By:Silvino Jean-Baptiste
[2022-01-29] MEDS: DOXYCYCLINE HYCLATE 100 MG in DEXTROSE 5% 100 ML IV SCH ×2 (06:00→18:15)
[2022-01-29 06:46] LABS: Partial Thromboplastin Ratio 2.5
[2022-01-29 07:19] LABS: Partial Thromboplastin Time 68.4 Seconds (21.0-31.0)
[2022-01-29] MEDS: HEPARIN SODIUM/DEXTROSE 25,000 UNITS/500 ML BAG IV SCH ×2 (08:41→22:15)
[2022-01-29] MEDS: ATORVASTATIN 20 MG TAB PO SCH (08:41)
[2022-01-29] MEDS: LOSARTAN POTASSIUM 50 MG TAB PO SCH (08:41)
[2022-01-29] MEDS: METOPROLOL SUCC 25MG EXT REL TAB PO SCH ×2 (08:41→20:21)
[2022-01-29] MEDS ORDERED: METOPROLOL SUCC 25MG EXT REL TAB PO STA (10:20)
--- NOTE | 2022-01-29 10:42 | Cardiology Progress Note ---
Date of Service January 29, 2022 Assessment & Plan (1) Atrial fibrillation with rapid ventricular response: (2) Dyspnea: (3) Hyperlipidemia: (4) Hypertension: Plan The patient is still in atrial fibrillation with high heart rates. I have increased his metoprolol today. Plan will be to proceed with a PRESTON cardioversion in the morning with anesthesia. Admission and Anticipated Discharge Date Admission Date: January 27, 2022 Subjective The patient had an uneventful night. Review of Systems Review of Systems: Review of Systems: See HPI for pertinent positives. All other 10 point review of systems are negative. Physical Exam Physical Exam: General: no acute distress and stated age Head: normocephalic, no masses, lesions, tenderness or abnormalities Eyes: conjunctiva are pink and non-injected, sclera clear Neck: supple, no adenopathy, no bruits, normal jugular venous pulse, no hepatojugular reflux Chest: normal shape and normal respiratory effort Lungs: clear to auscultation and percussion Cardiac Exam: - irregular rate & rhythm, no murmurs gallops or rubs - normal S1, normal S2 Pulses: 2(+) throughout Abdomen: abdomen soft, non-tender, no abnormal masses and no hepatosplenomegaly Musculoskeletal: no gait disturbance, no joint inflammation, no deforming arthritis Extremities: no edema and no cyanosis Neuro: grossly normal exam Results & Data ([facility]) Vital Signs (Past 12 Hours) Vital Signs Temp Pulse Pulse Resp BP Pulse Ox O2 Del Method 01/29/22 07:00 135 H 01/29/22 07:34 36.7 C 98 H 19 115/90 94 Room Air 01/29/22 03:39 36.7 C 117 H 16 162/77 H 96 Room Air 01/28/22 23:21 36.8 C 122 H 18 97/74 L 96 Room Air Laboratory Results Laboratory Results - last 24 hr 01/28/22 01/29/22 10:09 05:40 APTT 56.7 H* 68.4 H* PTT Ratio 2.1 2.5 Medications Administered Current Inpatient Medications Acetaminophen (Acetaminophen 325 Mg Tab) 650 mg PO Q4H PRN PRN Reason: Pain or Fever Stop: 02/26/22 15:40 Al Hydrox/Mg Hydrox/Simethicone (Aluminum/Magnesium Susp 30 Ml Udc) 15 ml PO Q4H PRN PRN Reason: Dyspepsia Stop: 02/26/22 15:40 Atorvastatin Calcium (Atorvastatin 20 Mg Tab) 20 mg PO QAM REPLACED BY [facility] Stop: 02/27/22 08:59 Last Admin: 01/29/22 08:41 Dose: 20 mg Heparin Sodium/Dextrose (Heparin Sodium/Dextrose) 25,000 units in 500 mls @ 21 mls/hr IV .[id number] REPLACED BY [facility]; Protocol Stop: 02/26/22 15:59 Last Admin: 01/29/22 08:41 Dose: 1,050 units/hr, 21 mls/hr Doxycycline Hyclate 100 mg/ (Dextrose) 110 mls @ 50 mls/hr IV Q12H REPLACED BY [facility] Stop: 02/06/22 17:44 Last Infusion: 01/29/22 08:26 Dose: Infused Losartan Potassium (Losartan Potassium 50 Mg Tab) [facility] Stop: 02/27/22 08:59 Last Admin: 01/29/22 08:41 Dose: 50 mg Magnesium Hydroxide (Magnesium Hydroxide Susp 30 Ml Udc) 30 ml PO Q12H PRN PRN Reason: Constipation Stop: 02/26/22 15:40 Metoprolol Succinate (Metoprolol Succ 25mg Ext Rel Tab) 25 mg PO BID REPLACED BY [facility] Stop: 02/28/22 20:59 Metoprolol Tartrate (Metoprolol Tartrate 1 Mg/Ml Vial) 5 mg IV Q4 PRN PRN Reason: tachycardia for HR >110 Stop: 02/27/22 19:59 Last Admin: 01/28/22 17:14 Dose: 5 mg Nitroglycerin (Nitroglycerin Sl 0.4 Mg/Tab Tab) 0.4 mg SL UD PRN PRN Reason: Chest Pain Stop: 02/26/22 15:40 Polyethylene Glycol (Polyethylene (Miralax) 17 Gm Pack) 17 gm PO DAILY PRN PRN Reason: Constipation Stop: 02/26/22 15:40
--- NOTE | 2022-01-29 14:16 | Hospitalist Progress Note ---
Date of Service January 29, 2022 Assessment & Plan (1) Atrial fibrillation with rapid ventricular response: Plan #. A. fib with RVR: Patient was sent from PCP office with [facility]. tanvir with RVR with heart rate in 130s Patient was having shortness of breath especially with exertion and also erratically since couple of weeks to a month prior to arrival EKG at admission with [facility]. tanvir with RVR with heart rate in 143. Admitting electrolytes with magnesium of 1.8, given a gram of magnesium in the ED. Admitting troponin negative. Troponin trends negative. BNP elevated at presentation. Status post Cardizem drip started at admission, transition to p.o. metoprolol, dose being adjusted per cardiology. Follow echo, continue with heparin drip, patient wants to go with Eliquis, Eliquis will cost him $47 a month, will discuss with patient at next visit. Cardiology following, appreciate recommendation. Likely plan to proceed with rhythm control with a PRESTON cardioversion prior to discharge, likely to happen tomorrow. Monitor and replete electrolytes. Maintain potassium greater than 4 and magnesium greater than 2.0 Pt advised to minimize alcohol use to zero, and minimize caffeine use. #. Lyme positive: Patient reports history of tick bite in the past where he had pulled ticks from his body, last one couple of years ago per him. Lyme IgG positive in the ED, confirmatory test pending. We will put him on doxycycline until results finalized. #. Alcohol use: reports drinking 1-2 beers a day, reports last drink a week ago, monitor for withdrawal, though unlikely if last drink was a week ago. #. Other chronic medical conditions: HTN, HLD --> resume home meds as able. #. DVT prophylaxis: On heparin drip, plan to transition to eliquis upon discharge if patient agrees to cost. #. Full code, if situation arises patient would like his daughter Yessica make decisions. Admission and Anticipated Discharge Date Admission Date: January 27, 2022 Subjective Patient seen and examined at bedside as a follow-up of A. tanvir with RVR. Patient was sitting up in chair, on room air, NAD, reports no new acute event overnight, denies any headache/dizziness/chest pain/belly pain/other review of symptoms. Patient was n.p.o. for possible PRESTON today, discussed with cardiology, PRESTON likely tomorrow, patient can resume diet and Will be n.p.o. midnight. Physical Exam Physical Exam: GENERAL: Alert and oriented x3. NAD, on RA. HEENT: No pallor, no icterus. Pupils equal, round and reactive to light. Oral mucosa moist. NECK: No JVD, no neck masses. HEART: S1 and S2 heard. Irregular in 120s. No murmur, no gallop. RESPIRATORY SYSTEM: Normal AP diameter. No accessory muscle use. No wheezing, no crackles. ABDOMEN: Soft, bowel sounds present, nontender, no distention. CENTRAL NERVOUS SYSTEM: No facial droop. Speech is clear. Obeys simple commands. Moves extremities. EXTREMITIES: RLE varicosity w/ 1-2 + pitting edema, LLE w/ trace/1+ edema, no erythema noted. Results & Data Results & Data ([facility]) Vital Signs (Past 12 Hours) Vital Signs Temp Pulse Pulse Resp BP Pulse Ox O2 Del Method 01/29/22 10:49 36.5 C 99 H 17 110/86 97 Room Air 01/29/22 07:00 135 H 01/29/22 07:34 36.7 C 98 H 19 115/90 94 Room Air 01/29/22 03:39 36.7 C 117 H 16 162/77 H 96 Room Air
[2022-01-29 15:37] LABS: Partial Thromboplastin Ratio 1.6; Partial Thromboplastin Time 43.5 Seconds (21.0-31.0)
[2022-01-29] MEDS: METOPROLOL TARTRATE 1 MG/ML VIAL IV PRN (18:14)
[2022-01-29 21:58] LABS: Partial Thromboplastin Ratio 2.2
[2022-01-29 22:07] LABS: Partial Thromboplastin Time 59.9 Seconds (21.0-31.0)
[2022-01-30] MEDS: DOXYCYCLINE HYCLATE 100 MG in DEXTROSE 5% 100 ML IV SCH (05:42)
[2022-01-30 07:11] LABS: BUN Creatinine Ratio 15.5 (10-20); Calcium 8.6 mg/dl (8.5-10.1); Creatinine Clr Calc Pharmacy 72.7 ml/min; Est GFR (African American) 77.9 ml/min; Est GFR (Non-African American) 67.2 ml/min
[2022-01-30] MEDS ORDERED: BENZOCAINE/TETRACAIN/BUTAM 50 APPLN/5 GM CAN EXT ONE (07:12)
[2022-01-30 07:13] LABS: Phosphorus 3.5 mg/dl (2.5-4.9)
--- NOTE | 2022-01-30 07:30 | Anesthesiology Consultation ---
Date of Service January 30, 2022 Assessment & Plan (1) Encounter for pre-operative examination: Chart Review Chart Review: Acceptable Risk for Surgery History Surgery Operation Date: 01/30/22 07:15 Proposed Procedures p Transesophageal Echo w/Anesthesia - Dl Novoa DO s Cardioversion - Dl Novoa DO Height/Weight Height: 5 ft 9 in Weight: 102.7 kg Allergies Allergy/AdvReac Type Severity Reaction Status Date / Time lisinopril Allergy Unknown Cough Verified 01/27/22 15:44 Medications Home Medications Medication Instructions Recorded Confirmed Last Taken alprazolam 0.5 mg tablet 0.5 mg PO HS PRN Sleep 01/27/22 01/27/22 Unknown atorvastatin 20 mg tablet 20 mg PO QAM 01/27/22 01/27/22 01/27/22 losartan 50 mg tablet 50 mg PO QAM 01/27/22 01/27/22 01/27/22 multivitamin (Multiple Vitamins 1 tab PO QAM 01/27/22 01/27/22 01/27/22 tablet) apixaban 5 mg tablet (Eliquis) 5 mg PO BID #60 tabs 01/28/22 Unknown Active Medications Generic Name Dose Route Start Last Admin Trade Name Freq PRN Reason Stop Dose Admin Atorvastatin Calcium 20 mg 01/28/22 09:00 01/29/22 08:41 Atorvastatin 20 Mg Tab PO 02/27/22 08:59 20 mg QAM DUSTY Administration Heparin Sodium/Dextrose 25,000 units in 500 mls @ 23 mls/hr 01/27/22 16:00 01/30/22 06:56 Heparin Sodium/Dextrose IV 02/26/22 15:59 1,150 units/hr .[id number] DUSTY 23 mls/hr Titration Protocol 1,150 UNITS/HR Doxycycline Hyclate 100 mg/ 110 mls @ 50 mls/hr 01/27/22 17:45 01/30/22 05:42 Dextrose IV 02/06/22 17:44 50 mls/hr Q12H DUSTY Administration Losartan Potassium 50 mg 01/28/22 09:00 01/29/22 08:41 Losartan Potassium 50 Mg Tab PO 02/27/22 08:59 50 mg QAM DUSTY Administration Metoprolol Succinate 25 mg 01/29/22 21:00 01/29/22 20:21 Metoprolol Succ 25mg Ext Rel Tab PO 02/28/22 20:59 25 mg BID DUSTY Administration Metoprolol Tartrate 5 mg 01/28/22 16:56 01/29/22 18:14 Metoprolol Tartrate 1 Mg/Ml Vial IV 02/27/22 19:59 5 mg Q4 PRN Administration tachycardia for HR >110 Past Medical History Medical History (Updated 01/30/22 @ 07:30 by Berny Arana MD) Atrial fibrillation with rapid ventricular response Hyperlipidemia Hypertension Social History Smoking Status: Former smoker Hx Alcohol Use: No Physical Exam Vital Signs Last Vital Signs Temp 36.7 C 01/30/22 03:01 Pulse 126 H 01/30/22 07:00 Resp 18 01/30/22 07:00 BP 112/84 01/30/22 07:00 Pulse Ox 96 01/30/22 07:00 O2 Del Method 01/30/22 07:00 O2 Flow Rate 3 01/30/22 07:00 Testing Laboratory Results 01/28/22 06:38 01/30/22 05:57 PT 11.0 Seconds (9.0-12.0) 01/27/22 12:57 INR 1.0 (0.9-1.1) 01/27/22 12:57 APTT 59.9 Seconds (21.0-31.0) H* 01/29/22 21:19 Electrocardiogram Findings: + AFIB @ (120's)
[2022-01-30 07:42] LABS: Partial Thromboplastin Ratio 2.5
[2022-01-30 07:45] LABS: Partial Thromboplastin Time 67.4 Seconds (21.0-31.0)
--- NOTE | 2022-01-30 07:49 | Cardioversion ---
Date of Service January 30, 2022 Electrical Cardioversion Rpt Electrical Cardioversion Report After informed consent was obtained the patient received sedation by anesthesia. He then underwent a transesophageal echocardiogram rendering no contraindication to cardioversion. He then received 300 J of synchronized energy and converted to normal sinus rhythm. He was recovered in the holding area the Java Programmer Analyst and then returned to his room in stable condition.
[2022-01-30] MEDS ORDERED: HEPARIN- STOP ORDER ONE (08:00)
--- NOTE | 2022-01-30 08:07 | Anesthesiology Progress Note ---
Date of Service January 30, 2022 Anesthesia Post Procedure Vital Signs Vital Signs: Temp Pulse Pulse Resp BP BP Pulse Ox 01/30/22 07:50 63 15 100/65 98 01/30/22 07:45 70 18 91/64 L 98 01/30/22 07:40 61 18 114/74 97 01/30/22 07:35 123 H 20 106/82 95 01/30/22 07:30 127 H 18 126/79 92 01/30/22 07:00 133 H 01/30/22 07:00 126 H 18 112/84 96 01/30/22 03:01 36.7 C 102 H 18 93/78 L 95 01/29/22 23:52 36.5 C 111 H 18 95/69 L 94 01/29/22 20:00 36.5 C 120 H 18 102/85 97 01/29/22 15:00 01/29/22 10:49 36.5 C 99 H 17 110/86 97 Pulse Ox O2 Del Method O2 Del Method O2 Flow Rate 01/30/22 07:50 Nasal Cannula 2 01/30/22 07:45 01/30/22 07:40 01/30/22 07:35 01/30/22 07:30 Nasal Cannula 01/30/22 07:00 01/30/22 07:00 Nasal Cannula 3 01/30/22 03:01 Room Air 01/29/22 23:52 Room Air 01/29/22 20:00 Room Air 01/29/22 15:00 97 Room Air 01/29/22 10:49 Room Air Transfer of Care Handoff Completed per policy Notes Mental Status: alert / awake / arousable Patient Amnestic to Procedure: Yes Nausea / Vomiting: adequately controlled Pain: adequately controlled Airway Patency, RR, SpO2: stable & adequate BP & HR: stable & adequate Hydration State: stable & adequate Anesthetic Complications: no major complications apparent
[2022-01-30] MEDS ORDERED: LIDOCAINE 2% MPF LOCAL 5 ML VIAL INFIL ONE (08:22)
[2022-01-30] MEDS ORDERED: PROPOFOL IV EMULSION 10 MG/ML 20 ML VIAL IV ONE (08:22)
[2022-01-30] MEDS: HEPARIN SODIUM/DEXTROSE 25,000 UNITS/500 ML BAG IV SCH (08:25)
[2022-01-30] MEDS: METOPROLOL SUCC 25MG EXT REL TAB PO SCH (08:53)
[2022-01-30] MEDS: LOSARTAN POTASSIUM 50 MG TAB PO SCH (08:55)
[2022-01-30] MEDS: ATORVASTATIN 20 MG TAB PO SCH (08:55)
[2022-01-30] MEDS ORDERED: APIXABAN 5 MG TABLET PO SCH (09:00)
[2022-01-30 09:56] LABS: Magnesium 1.8 mg/dl (1.7-2.4)
--- NOTE | 2022-01-30 10:33 | Cardiology Progress Note ---
Date of Service January 30, 2022 Assessment & Plan (1) Atrial fibrillation with rapid ventricular response: (2) Dyspnea: (3) Hyperlipidemia: (4) Hypertension: Plan The patient had a successful cardioversion this morning. He was started on Eliquis. He has a tachycardia induced cardiomyopathy and he should be maintained on guideline directed medications post discharge including Toprol succinate and losartan. I we will arrange follow-up through our clinic after discharge. Admission and Anticipated Discharge Date Admission Date: January 27, 2022 Subjective The patient is sitting in a chair comfortably post cardioversion and maintaining sinus rhythm. Review of Systems Review of Systems: Review of Systems: See HPI for pertinent positives. All other 10 point review of systems are negative. Physical Exam Physical Exam: General: no acute distress and stated age Head: normocephalic, no masses, lesions, tenderness or abnormalities Eyes: conjunctiva are pink and non-injected, sclera clear Neck: supple, no adenopathy, no bruits, normal jugular venous pulse, no hepatojugular reflux Chest: normal shape and normal respiratory effort Lungs: clear to auscultation and percussion Cardiac Exam: - regular rate & rhythm, no murmurs gallops or rubs - normal S1, normal S2 Pulses: 2(+) throughout Abdomen: abdomen soft, non-tender, no abnormal masses and no hepatosplenomegaly Musculoskeletal: no gait disturbance, no joint inflammation, no deforming arthritis Extremities: no edema and no cyanosis Neuro: grossly normal exam Results & Data ([facility]) Vital Signs (Past 12 Hours) Vital Signs Temp Pulse Pulse Resp BP BP Pulse Ox 01/30/22 08:18 36.9 C 64 16 101/58 L 97 01/30/22 07:50 63 15 100/65 98 01/30/22 07:45 70 18 91/64 L 98 01/30/22 07:40 61 18 114/74 97 01/30/22 07:35 123 H 20 106/82 95 01/30/22 07:30 127 H 18 126/79 92 01/30/22 07:00 133 H 01/30/22 07:00 126 H 18 112/84 96 01/30/22 03:01 36.7 C 102 H 18 93/78 L 95 01/29/22 23:52 36.5 C 111 H 18 95/69 L 94 O2 Del Method O2 Flow Rate 01/30/22 08:18 Room Air 01/30/22 07:50 Nasal Cannula 2 01/30/22 07:45 01/30/22 07:40 01/30/22 07:35 01/30/22 07:30 Nasal Cannula 01/30/22 07:00 01/30/22 07:00 Nasal Cannula 3 01/30/22 03:01 Room Air 01/29/22 23:52 Room Air Laboratory Results Laboratory Results - last 24 hr 01/29/22 01/29/22 01/30/22 14:29 21:19 05:57 APTT 43.5 H 59.9 H* PTT Ratio 1.6 2.2 Sodium 141 Potassium 4.0 Chloride 107 Carbon Dioxide 27 Anion Gap 7 BUN 17 Creatinine 1.10 Est Cr Clr Drug Dosing 72.7 Est GFR ( Amer) 77.9 Est GFR (Non-Af Amer) 67.2 BUN/Creatinine Ratio 15.5 Glucose 100 H Calcium 8.6 Phosphorus 3.5 Magnesium 1.8 01/30/22 05:57 APTT 67.4 H* PTT Ratio 2.5 Sodium Potassium Chloride Carbon Dioxide Anion Gap BUN Creatinine Est Cr Clr Drug Dosing Est GFR ( Amer) Est GFR (Non-Af Amer) BUN/Creatinine Ratio Glucose Calcium Phosphorus Magnesium Medications Administered Current Inpatient Medications Acetaminophen (Acetaminophen 325 Mg Tab) 650 mg PO Q4H PRN PRN Reason: Pain or Fever Stop: 02/26/22 15:40 Al Hydrox/Mg Hydrox/Simethicone (Aluminum/Magnesium Susp 30 Ml Udc) 15 ml PO Q4H PRN PRN Reason: Dyspepsia Stop: 02/26/22 15:40 Apixaban (Apixaban 5 Mg Tablet) 5 mg PO BID [facility] Stop: 03/01/22 08:59 Last Admin: 01/30/22 08:52 Dose: 5 mg Atorvastatin Calcium (Atorvastatin 20 Mg Tab) 20 mg PO QAM [facility] Stop: 02/27/22 08:59 Last Admin: 01/30/22 08:55 Dose: 20 mg Doxycycline Hyclate 100 mg/ (Dextrose) 110 mls @ 50 mls/hr IV Q12H [facility] Stop: 02/06/22 17:44 Last Infusion: 01/30/22 08:27 Dose: Infused Losartan Potassium (Losartan Potassium 50 Mg Tab) 50 mg PO QAM [facility] Stop: 02/27/22 08:59 Last Admin: 01/30/22 08:55 Dose: Not Given Magnesium Hydroxide (Magnesium Hydroxide Susp 30 Ml Udc) 30 ml PO Q12H PRN PRN Reason: Constipation Stop: 02/26/22 15:40 Metoprolol Succinate (Metoprolol Succ 25mg Ext Rel Tab) 25 mg PO BID [facility] Stop: 02/28/22 20:59 Last Admin: 01/30/22 08:53 Dose: 25 mg Metoprolol Tartrate (Metoprolol Tartrate 1 Mg/Ml Vial) 5 mg IV Q4 PRN PRN Reason: tachycardia for HR >110 Stop: 02/27/22 19:59 Last Admin: 01/29/22 18:14 Dose: 5 mg Nitroglycerin (Nitroglycerin Sl 0.4 Mg/Tab Tab) 0.4 mg SL UD PRN PRN Reason: Chest Pain Stop: 02/26/22 15:40 Polyethylene Glycol (Polyethylene (Miralax) 17 Gm Pack) 17 gm PO DAILY PRN PRN Reason: Constipation Stop: 02/26/22 15:40
--- NOTE | 2022-01-30 13:44 | Discharge Summary ---
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 fib RVR with heart rate in 130s. Per patient, he has been having shortness of breath mostly with exertion but erratically as well since couple of weeks to a month prior to arrival, no associated chest pain or feeling of heart racing, denies headache/recent flulike symptoms/belly pain/acute changes in his bowel or bladder habit. Patient complains of dizziness on and off especially when getting off of the chair which gets better within couple of seconds. Patient reports drinking 4-5 coffee a day, last drink of coffee 1 week ago per patient. Patient drinks more beer during the summer, 4-5 beer over the weekend on top of 1-2 beer on a reg ular basis. Patient camps every summer and remembers pulling out ticks couple of times from his body, last one couple of years ago. Today patient went to PCP office for shortness of breath where EKG was done and was found in A. fib with RVR with heart rate of 130 and sent to the ED. Patient denies any headache or belly pain or acute swelling in his lower extremities. Patient reports he has chronic RLE swelling with varicose veins. Medications were reviewed with the patient. Patient's daughter Tayler Gautam and Marline Seo were present at the bedside. No personal history of blood clot or family history of blood clot. Patient's mother had colon cancer and has pacemaker. Patient's father during bypass surgery per patient. Patient worked as warehouse associate driver, currently retired. Patient quit smoking 15 to 18 years ago, reports smoking for around 45 years with an average of 1 packs a day. Patient has been drinking alcohol for 40 to 45 years, 1-2 beers a day, more during the . Patient denies any history of use of recreational drugs. Full code. Would like his daughters Yessica make decisions if situation arises. Admission Exam Per Admitting Provider GENERAL: Alert and oriented x3. NAD, on RA. HEENT: No pallor, no icterus. Pupils equal, round and reactive to light. Oral mucosa moist. NECK: No JVD, no neck masses. HEART: S1 and S2 heard. Irregular in 120s. No murmur, no gallop. RESPIRATORY SYSTEM: Normal AP diameter. No accessory muscle use. No wheezing, no crackles. ABDOMEN: Soft, bowel sounds present, nontender, no distention. CENTRAL NERVOUS SYSTEM: No facial droop. Speech is clear. Obeys simple commands. Moves extremities. EXTREMITIES: RLE varicosity w/ 1-2 + pitting edema, LLE w/ trace edema, no erythema noted. Principal Diagnosis A. fib with RVR, new Lyme disease screen positive, confirmatory test pending Discharge Exam GENERAL: Alert and oriented x3. NAD, on RA. HEENT: No pallor, no icterus. Pupils equal, round and reactive to light. Oral mucosa moist. NECK: No JVD, no neck masses. HEART: S1 and S2 heard. regular rate and rhythm. No murmur, no gallop. RESPIRATORY SYSTEM: Normal AP diameter. No accessory muscle use. No wheezing, no crackles. ABDOMEN: Soft, bowel sounds present, nontender, no distention. CENTRAL NERVOUS SYSTEM: No facial droop. Speech is clear. Obeys simple commands. Moves extremities. EXTREMITIES: RLE varicosity w/ 1-2 + pitting edema, LLE w/ trace/1+ edema, no erythema noted. Discharge Data Allergies Allergy/AdvReac Type Severity Reaction Status Date / Time lisinopril Allergy Unknown Cough Verified 01/27/22 15:44 Consultations 01/27/22 15:06 ED Decision to Admit Stat 01/27/22 15:41 Consult Cardiology Routine 01/29/22 10:37 Consult Anesthesiology Routine Procedures Performed Operation Date: 01/30/22 07:15 Actual Procedures p Echo Transesophageal - Dl Novoa DO s Echo Color Flow - Dl Novoa DO s Echo Doppler Complete - DO denita Shaver Cardioversion - Dl Novoa DO Hospital Course (1) Atrial fibrillation with rapid ventricular response: Plan 71-year-old gentleman was managed for the following while in hospital: #. A. fib with RVR: Patient was sent from PCP office with A. fib with RVR with heart rate in 130s Patient was having shortness of breath especially with exertion and also erratically since couple of weeks to a month prior to arrival EKG at admission with A. fib with RVR with heart rate in 143. Admitting electrolytes with magnesium of 1.8, given a gram of magnesium in the ED. Admitting troponin negative. Troponin trends negative. BNP elevated at presentation. 01/28 ECHO: EF 35-40%, LV systolic fxn moderately reduced. Status post Cardizem drip started at admission, transition to p.o. metoprolol BID on DC. S/p cardioversion 01/30/22 w/ successful conversion to sinus rhythm. Pt Ok w/ eliquis cost, being dc'd on eliquis. Cardiology following, appreciate recommendation. Pt advised to minimize alcohol use to zero, and minimize caffeine use. Pt's dtr Yessica at bedside, updated on patients' treatment plan. #. Lyme positive: Patient reports history of tick bite in the past where he had pulled ticks from his body, last one couple of years ago per him. Lyme IgG positive in the ED, confirmatory test pending. We will put him on doxycycline until results finalized. Patient to follow-up with PCP on final results of the Lyme disease confirmatory test. #. Alcohol use: reports drinking 1-2 beers a day, reports last drink a week ago, monitor for withdrawal, though unlikely if last drink was a week ago. #. Other chronic medical conditions: HTN, HLD --> resume home meds as able. #. DVT prophylaxis: On heparin drip, plan to transition to eliquis upon discharge if patient agrees to cost. #. Full code, if situation arises patient would like his daughter Yessica make decisions. Patient being discharged home with following instruction at the point of discharge: Follow-up with your primary care physician within a week time and likely you will need blood test CBC/CMP/magnesium/phosphorus levels. Follow-up with your cardiology as an outpatient. You have been diagnosed with A. fib with RVR while in hospital, you were started on Eliquis and metoprolol. Recommend to avoid drinking alcoholic beverages and limit your caffeine intake. Your Lyme disease screening was positive while in hospital but confirmatory test is yet pending. You are on antibiotic doxycycline for this concern until the confirmatory test is back. Please follow-up with your primary care physician in a week time on the final results of your Lyme disease confirmatory test to decide on the duration of your p.o. antibiotic. Take your medications as prescribed. Please make sure that you are able to get your medications today by calling your pharmacy before you leave the hospital so that your treatment continuity is not broken. Home Health Attestation I certify that this patient is under my care and that I, or a physicians fast food sales assistant working with me, had a face to-face encounter that meets the home health [id number] encounter requirements with this patient. The encounter with the patient was in whole, or in part, for the following medical condition, which is the primary reason for home health care (list medical condition): I certify that, based on my findings, the following services are medically necessary home health services: My clinical findings support the need for the above services because: Further, I certify that my clinical findings support that this patient is homebound (i.e. absences from home require considerable and taxing effort and are for medical reasons or hinduism services or infrequently or of short duration when for other reasons) because: Certification for Home Health Services: Based on the above findings, I certify that this patient is confined to the home and needs intermittent snf care, physical therapy and/or speech therapy or continues to need occupational therapy. The patient is under my care, and I have initiated the establishment of the plan of care. This patient will be followed by a physician who will periodically review the plan of care. Total Time Total Time Spent Total Time Spent (In Minutes): 40 Discharge Plan Discharge Items Patient Disposition: Home - Home Health Services Reason For Visit: SOB,AFIB RVR Discharge Diagnosis: A. fib with RVR, new Lyme disease screen positive, confirmatory test pending Activity: Resume your previous activity Non-emergency contact: Primary Care Provider Call non-emergency contact if: you have any medication questions Follow-up/Referrals: Dl Novoa DO [Sales And Service Specialist] - (The cardiology office will call you with an appointment.) Rolan Estrada MD [Primary Care Provider] - (Date & Time 02/06/2022 2:00 PM Provider Rolan Estrada MD [facility] ) Diet: Heart Healthy Addtl Attending Provider Instructions: Follow-up with your primary care physician within a week time and likely you will need blood test CBC/CMP/magnesium/phosphorus levels. Follow-up with your cardiology as an outpatient. You have been diagnosed with A. fib with RVR while in hospital, you were started on Eliquis and metoprolol. Recommend to avoid drinking alcoholic beverages and limit your caffeine intake. Your Lyme disease screening was positive while in hospital but confirmatory test is yet pending. You are on antibiotic doxycycline for this concern until the confirmatory test is back. Please follow-up with your primary care physician in a week time on the final results of your Lyme disease confirmatory test to decide on the duration of your p.o. antibiotic. Take your medications as prescribed. Please make sure that you are able to get your medications today by calling your pharmacy before you leave the hospital so that your treatment continuity is not broken. Pending Studies at Discharge: No Stand-Alone Forms: My [facility], Smoking Cessation Medications and DC Order Prescriptions: New Eliquis 5 mg tablet 5 mg PO BID Qty: 60 0RF metoprolol succinate 25 mg Tablet Extended Release 24 Hr 25 mg PO BID Qty: 60 0RF doxycycline hyclate 100 mg tablet 100 mg PO BID 11 Days Qty: 22 0RF Continued multivitamin [Multiple Vitamins] Tablet 1 tab PO QAM losartan 50 mg tablet 50 mg PO QAM atorvastatin 20 mg tablet 20 mg PO QAM alprazolam 0.5 mg tablet 0.5 mg PO HS PRN (Reason: Sleep) Discharge Orders: Discharge Order (Routine); Ordered 01/30/22 Ordered By: Stephie Sousa Admission Data Admit Date/Time: 01/27/22 15:07 Attending Provider: Stephie Sousa Admit Provider: Stephie Sousa Primary Care Provider: Rolan Estrada Other Providers: Stephie Sousa ; Dl Novoa ; Josué Godinze
--- NOTE | 2022-01-30 21:52 | Electrocardiogram Report ---
Test Reason : Blood Pressure : / mmHG Vent. Rate : 142 BPM Atrial Rate : 117 BPM P-R Int : 000 ms QRS Dur : 092 ms QT Int : 334 ms P-R-T Axes : 000 -32 057 degrees QTc Int : 513 ms Atrial fibrillation with rapid ventricular response Left axis deviation Poor R wave progression, consider anterior CA vs. lead placement vs. LVH Prolonged QT Abnormal ECG When compared with ECG of 28-JAN-2022 05:00, Vent. rate has increased BY 51 BPM Confirmed by Aleks Long ([id number]) on 01/30/2022 9:51:57 PM Referred By: Rolan Estrada Confirmed By:Aleks Long
[2022-02-01 01:58] LABS: 18KDIGG Band NON-REACTIVE; 23KDIGG Band NON-REACTIVE; 23KDIGM Band NON-REACTIVE; 28KDIGG Band NON-REACTIVE; 30KDIGG Band NON-REACTIVE; 39KDIGG Band REACTIVE; 39KDIGM Band NON-REACTIVE; 41KDIGG Band REACTIVE; 41KDIGM Band NON-REACTIVE; 45KDIGG Band NON-REACTIVE; 58KDIGG Band NON-REACTIVE; 66KDIGG Band NON-REACTIVE; 93KDIGG Band NON-REACTIVE; Lyme Antibodies, WB IgG NEGATIVE (NEGATIVE); Lyme Antibodies, WB IgM NEGATIVE (NEGATIVE)
--- NOTE | 2022-02-01 22:23 | Electrocardiogram Report ---
Test Reason : Blood Pressure : / mmHG Vent. Rate : 062 BPM Atrial Rate : 062 BPM P-R Int : 200 ms QRS Dur : 074 ms QT Int : 400 ms P-R-T Axes : 059 -48 066 degrees QTc Int : 406 ms Normal sinus rhythm Left axis deviation Low voltage QRS Poor R wave progression, consider anterior GA vs. lead placement vs. LVH Abnormal ECG When compared with ECG of 29-JAN-2022 05:27, Sinus rhythm has replaced Atrial fibrillation Vent. rate has decreased by 80 bpm Confirmed by Aleks Long ([id number]) on 02/01/2022 10:23:43 PM Referred By: Rolan Estrada Confirmed By:Aleks Long
== END 2022-01-30 16:17 | disposition home health service (06) | DRG 309 ==
LOC: ED 12:36 → 2E 15:07